=== PATIENT | female | born 1955 | race Caucasian/White ===

== ENCOUNTER 2016-08-14 13:24 | Emergency (ER) | payer SELFPAY ==
--- NOTE | 2016-08-14 14:09 | ED.PDOC ---
History of Present Illness - General Chief Complaint: Lower Extremity Injury Time Seen by Provider: 08/14/16 13:30 Source: patient Exam Limitations: no limitations - History of Present Illness Initial Comments: the patient is a 60-year-old female presenting to the emergency room approximately 48 hours after being butted byt a goat in her left anterior cano. She has experienced swelling and bruising over the area that has started to spread down her leg. She is neurovascularly preserved. She has been ambulatory. No other injuries. No evidence of compartment syndrome. Severity: moderate Improving Factors: nothing Worsening Factors: nothing Associated Symptoms: denies symptoms Allergies/Adverse Reactions: Allergies Codeine Allergy (Unknown, Verified 08/14/16 13:38) Rash Rash and itching Decongestant Adverse Reaction (Uncoded 08/14/16 13:38) Other Causes patient to have severe chest tightness and feel jittery Home Medications: Ambulatory Orders Lisinopril & Hydrochlorothiazi [Lisinopril/Hctz 20-25 mg] 1 tab PO DAILY Lovastatin 10 mg PO DAILY 10/06/15 Ropinirole Hydrochloride [Ropinirole HCl] 1 mg PO TID 10/06/15 Aspirin [Baby Aspirin] 162 mg PO QD #30 tab 10/07/15 Pantoprazole Sodium [Protonix] 20 mg PO QAM #30 tab 10/07/15 Review of Systems - Review of Systems Constitutional: States: no symptoms reported EENTM: States: no symptoms reported Respiratory: States: no symptoms reported Cardiology: States: no symptoms reported Gastrointestinal/Abdominal: States: no symptoms reported Genitourinary: States: no symptoms reported Musculoskeletal: States: see HPI Skin: States: no symptoms reported Neurological: States: no symptoms reported All other Systems: No Change from Baseline Past Medical History (General) - Patient Medical History Hx Stroke: No Hx Asthma: No Hx of COPD: No Hx Cardiac Disorders: Yes - hypercholesterolemia Hx Congestive Heart Failure: No Hx Pacemaker: No Hx Hypertension: Yes Hx Diabetes: No Hx Gastroesophageal Reflux: Yes Hx Cancer: Yes - melanoma removal Hx MRSA: No Surgical History: Hysterectomy - Vaccination History Hx Tetanus, Diphtheria Vaccination: No Hx Influenza Vaccination: No Hx Pneumococcal Vaccination: No - Social History Hx Tobacco Use: Yes Hx Alcohol Use: No Hx Substance Use: No Family Medical History - Family History Mother Family History: Unknown Living Status: Unknown Physical Exam - Physical Exam General Appearance: Alert, Comfortable, No apparent distress Eye Exam: bilateral normal Ears, Nose, Throat: normal ENT inspection Neck: full range of motion, supple, normal inspection Respiratory: no respiratory distress, no accessory muscle use Cardiovascular/Chest: normal peripheral pulses, no edema Peripheral Pulses: radial,right: 2+, radial,left: 2+, dorsalis pedis,right: 2+, dorsalis pedis,left: 2+, posterior tibialis,right: 2+, posterior tibialis,left: 2+ Extremity: normal range of motion, no calf tenderness, normal capillary refill, other - the patient has trace edema to her left lower extremity area bruising is primarily in the anterior cano. Neurologic: no motor/sensory deficits, alert, normal mood/affect, oriented x 3 Skin Exam: normal color Comments: Vital Signs - 24 hr 08/14/16 13:39 Temperature 98.1 F Pulse Rate [ 97 H Left Radial] Respiratory 20 Rate Blood Pressure 155/100 [Right Arm] O2 Sat by Pulse 99 Oximetry Progress - Progress Progress: 08/14/16 14:09 the patient is a 60-year-old female with bruising to her anterior cano after blunt trauma from the goat. No evidence of compartment syndrome. Encourage ambulation. She needs to elevate it when she can. ER warnings were given for any worsening. X-ray of the tibia and fibula show no evidence of fracture or dislocation. Departure - Departure Clinical Impression: Hematoma of left lower extremity Qualifiers: Encounter type: initial encounter Qualifier Code: (S80.12XA) Contusion of left lower leg, initial encounter Disposition: Discharge to Home or Self Care Condition: Fair Departure Forms: ED Discharge - Pt. Copy, Patient Portal Self Enrollment Instructions: DI for Hematoma (Bruise) Diet: regular diet Activity: increase activity as tolerated Referrals: Ariela Lara NP [Primary Care Provider] - 1-2 Weeks Home Medications: Ambulatory Orders Lisinopril & Hydrochlorothiazi [Lisinopril/Hctz 20-25 mg] 1 tab PO DAILY Lovastatin 10 mg PO DAILY 10/06/15 Ropinirole Hydrochloride [Ropinirole HCl] 1 mg PO TID 10/06/15 Aspirin [Baby Aspirin] 162 mg PO QD #30 tab 10/07/15 Pantoprazole Sodium [Protonix] 20 mg PO QAM #30 tab 04/01/16 Additional Instructions: the patient is a 60-year-old female with bruising to her anterior cano after blunt trauma from the goat. No evidence of compartment syndrome. Encourage ambulation. She needs to elevate it when she can. ER warnings were given for any worsening. X-ray of the tibia and fibula show no evidence of fracture or dislocation.
[2016-08-14 14:18] VITALS: BP 126/88; TEMP 97.9; O2SAT 97
--- NOTE | 2016-08-14 14:28 | RAD ---
EXAM DESCRIPTION: XR TIBIA FIBULA 2 VIEWS CLINICAL HISTORY: hit by goat leg pain COMPARISON: None. IMPRESSION: Two views of the left tibia and fibula show no evidence of acute fracture, focal bone destruction, or joint dislocation. Soft tissues show mild soft tissue swelling anterior to the mid to proximal tibia. Moderate Achilles enthesophyte of the calcaneus. Electronically signed by: Anil Hinton MD 08/14/2016 14:26
== END 2016-08-14 14:18 | disposition home or self-care (01) ==
LOC: ER 13:24
DX: S80.12XA Contusion of left lower leg, initial encounter (principal); E78.00 Pure hypercholesterolemia, unspecified; I10 Essential (primary) hypertension; K21.9 Gastro-esophageal reflux disease without esophagitis; Z88.6 Allergy status to analgesic agent; Z88.8 Allergy status to other drugs, medicaments and biological substances; Z79.82 Long term (current) use of aspirin; Z87.891 Personal history of nicotine dependence; Z85.820 Personal history of malignant melanoma of skin; Z79.899 Other long term (current) drug therapy; W55.32XA Struck by other hoof stock, initial encounter

== ENCOUNTER → 2018-03-06 | Outpatient (CLI) | payer SELFPAY ==
--- NOTE | 2018-03-07 13:41 | MAM ---
EXAM DESCRIPTION: 3D Screening BILATERAL : Digital Mammography. CLINICAL HISTORY: 62 years Female SCREENING . No personal history or family history breast cancer. Childbirth. Postmenopausal. No HRT. Lifetime risk of developing breast cancer (Tyrer-Cuzick model) is 6.8 %. COMPARISON: Bilateral digital 2-D screening mammographic examination 04/17/2012.. No prior reports available. TECHNIQUE: Bilateral CC and MLO projection full-field images, Digital tomosynthesis mammographic technique. Bilateral digital 2-D full-field MLO images. CAD not utilized. FINDINGS: The breast parenchymal density pattern is: Almost entirely fatty. Scattered areas of fibroglandular density. Heterogeneously dense breast tissue, which may obscure small masses. Extremely dense breast tissue, which lowers the sensitivity of mammography. No skin thickening or nipple retraction. Bilateral solitary microcalcifications. Stable intramammary lymph node anterior right breast. No new focal, stellate mass or density, focal asymmetry , and no suspicious microcalcifications bilaterally. Stable mammograms compared to prior study. Taking into account, differences in mammographic technique. IMPRESSION: Benign exam. BIRAD CATEGORY: 2 BENIGN FINDINGS. RECOMMENDATIONS: FOLLOW UP: Routine digital bilateral screening, one year interval from February 2018. Written communication explaining the IMPRESSION and follow-up, will be mailed to the patient and referring health care provider. According to the [employer], yearly mammograms are recommended starting at age 40 and continuing as long as a woman is in good health. Any breast change noted on a breast self-exam should be reported promptly to the patient's healthcare provider. Breast MRI is recommended for women with an approximately 20-25% or greater lifetime risk of breast cancer, including women with a strong family history of breast or ovarian cancer and women who have been treated for Hodgkin's disease. A negative mammographic report should not delay tissue diagnosis in patients with significant clinical history or physical findings. Extremely dense breast tissue limits the sensitivity of digital mammography. Electronically signed by: Dominick Barnes MD 03/07/2018 1:39 PM CDT
== END ==
LOC: MAMMO 09:00
PROVIDERS: ATTEND Nurse Practitioner Family
DX: Z12.31 Encounter for screening mammogram for malignant neoplasm of breast (principal)

== ENCOUNTER → 2019-12-16 | Outpatient (CLI) | payer MEDICARE, SELFPAY ==
--- NOTE | 2019-12-17 11:00 | CT ---
Procedure: CT LUNG SCREENING Exam Date: 12/16/2019. Ordering Provider: Ariela Lara Clinical Indication: NICOTINE DEPENDENCE current cigarette smoker. 45 pack years. This patient meets eligibility criteria for low-dose CT lung cancer screening. Comparison: Chest x-ray October 06, 2015. Technique: Using a multislice scanner, sequential helical axial imaging was obtained in the thorax, 2.5 mm thickness, 2.5 mm separation, from the level of the thoracic inlet through the lung bases without IV contrast. A low dose protocol was utilized for BMI less than 30: BMI: 29.9. CTDI: 1.76 mGy. 120. kVp. 45 mA. DLP 61 mGy-cm. 2D sagittal and coronal reconstructed images, 6.0 mm thickness, were obtained. This exam was performed according to our departmental dose optimization program which includes use of automated exposure control, adjustment of the mA and/or kV according to patient size and/or use of iterative reconstruction technique. Nodule measurements under 10 mm are given as mean value of 3 axes diameters. FINDINGS: Lungs and large Airways: bilateral small blebs in a centrilobular distribution in the upper aspect of the upper lobes. 3 mm subpleural nodule in the lateral right apex on axial series 2, image 22. Groundglass density versus infiltrate approximately 2 cm x 1.5 cm, subpleural location, in the medial aspect of the posterior recess of the right lower lobe. Bilateral lower lobe pleural-parenchymal scarring. Bilateral perihilar peribronchial wall minimal thickening. No abnormal nodules and no masses bilaterally. Pleura and space: Bilateral apical pleural thickening more on the left. Scattered thickening bilaterally. Also in the right lower lobe. No effusion or pneumothorax. Mediastinum and jacquelyn: evaluation limited by low dose technique and lack of IV contrast. Small nodes with no dominant soft tissue mass. Heart and great vessels: Minimal aortic atherosclerotic calcification with normal contour. Chest wall, lower neck, axillae: Evaluation also limited by same factors as described above. Normal size axillary nodes. Upper abdomen: Evaluation limited by low-dose technique. No free air or free fluid. Normal density and size of the included adrenal gland and spleen. Surgical clips in the gallbladder fossa with no fluid. Small splenule abutting the spleen. Osseous structures: Evaluation limited by low dose MIP technique. Multiple levels of anterior spondylolisthesis on the thoracic spine. Sternomanubrial arthrosis and minimal arthrosis of the sternoclavicular joints. IMPRESSION: 1. Minimal emphysematous changes in the upper aspects of the upper lobes. Groundglass nodule/density more likely then acute infiltrate in the right lower lobe.. [facility] Best Practice Recommendations: please see below for Lung RADS category and FOLLOW-UP.* *Lung RADS category CATEGORY 2- Nodules with a very low likelihood (less than 1%) of becoming a clinically active cancer due to size or lack of growth. Nodules: Perifissural nodule(s) < 10 mm. (526mm3). Solid or part solid nodule(s) less than 6mm (113.1 mm3), new solid nodule less than 4mm (33.5 mm3). Ground glass nodule(s) less than 30mm (85154.2 mm3) or unchanged or slow growing ground glass nodule 30mm or greater. Cat 3 or 4 nodule unchanged for 3 or more months. FOLLOW-UP: Continue annual screening with a Low Dose Chest CT in 12 months for re-evaluation. Electronically signed by: Dominick Barnes MD 12/17/2019 9:38 AM CDT
--- NOTE | 2019-12-18 16:08 | MAM ---
EXAM DESCRIPTION: 3D Screening BILATERAL : Digital Mammography. CLINICAL HISTORY: 64 years Female SCREENING no complaints or personal history or family history of breast cancer. Menarche age 13. Childbirth age 24. Menopause age unknown. No HRT. Lifetime risk of developing breast cancer (Tyrer-Cuzick model)(%): 6.8. COMPARISON: Bilateral screening digital breast tomosynthesis February 2018.. TECHNIQUE: Bilateral CC and MLO projection full-field images, digital tomosynthesis mammographic technique. Bilateral digital 2-D full-field MLO images. CAD available for 2-D images. FINDINGS: The breast parenchymal density pattern is: Scattered areas of fibroglandular density. No skin thickening or nipple retraction. Bilateral skin mole markers. Skin folds on the right breast. Solitary microcalcifications. No new focal, stellate mass or density, focal asymmetry , and no suspicious microcalcifications bilaterally. Stable mammograms since the prior study. IMPRESSION: Benign exam. BIRAD CATEGORY: 2 BENIGN FINDINGS. RECOMMENDATIONS: FOLLOW UP: Routine digital bilateral mammographic screening, one year interval from December 2019. Written communication explaining the IMPRESSION and follow-up, will be mailed to the patient and referring health care provider. According to the [employer], yearly mammograms are recommended starting at age 40 and continuing as long as a woman is in good health. Any breast change noted on a breast self-exam should be reported promptly to the patient's healthcare provider. Breast MRI is recommended for women with an approximately 20-25% or greater lifetime risk of breast cancer, including women with a strong family history of breast or ovarian cancer and women who have been treated for Hodgkin's disease. A negative mammographic report should not delay tissue diagnosis in patients with significant clinical history or physical findings. Extremely dense breast tissue limits the sensitivity of digital mammography. Electronically signed by: Dominick Barnes MD 12/18/2019 4:06 PM CDT
== END ==
LOC: CT 09:53
PROVIDERS: ATTEND Nurse Practitioner Family
DX: Z12.31 Encounter for screening mammogram for malignant neoplasm of breast (principal); Z87.891 Personal history of nicotine dependence
CPT/HCPCS: 77063; 77067; G0297